=== PATIENT | male | born 1995 | race Caucasian/White ===

== ENCOUNTER 2018-09-24 15:58 | Emergency (ER) | payer OTHER ==
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
[2018-09-24 17:45] VITALS: BP 129/71
== END 2018-09-24 17:44 | disposition home or self-care (01) ==
DX: S43.401A Unspecified sprain of right shoulder joint, initial encounter (principal); S40.211A Abrasion of right shoulder, initial encounter; S50.311A Abrasion of right elbow, initial encounter; V19.9XXA Pedal cyclist (driver) (passenger) injured in unspecified traffic accident, initial encounter; Y93.55 Activity, bike riding